=== PATIENT | male | born 1985 | race Two or more races ===

== ENCOUNTER 2017-05-14 23:00 | Emergency (ER) | payer MEDICAID, OTHER ==
[~2017-05-14] VITALS: Ht 172.7 cm; Wt 77.1 kg
[2017-05-15] MEDS ORDERED: DEXAMETHASONE SOD PHOS 10MG/1ML VIAL INJ IV ONE (02:30)
[2017-05-15] MEDS ORDERED: DEXAMETHASONE SOD PHOS 10MG/1ML VIAL INJ IM ONE (02:30)
[2017-05-15] MEDS ORDERED: KETOROLAC TROMETH 60MG/2ML VIAL IM ONE (02:30)
[2017-05-15] MEDS ORDERED: KETOROLAC TROMETH 30 MG/ML 1ML VIAL IV ONE ×2 (02:30→03:30)
[2017-05-15] MEDS ORDERED: SODIUM CHLORIDE 0.9% 1,000 ML IV ONE (02:30)
[2017-05-15 02:46] VITALS: BP 119/86
== END 2017-05-15 03:27 | disposition home or self-care (01) ==
LOC: ER 23:00
DX: K11.20 Sialoadenitis, unspecified (principal)
CPT/HCPCS: 96374; 96375; 96376; 99284; J1100; J1885; J7030

== ENCOUNTER 2022-08-08 00:30 | Emergency (ER) | payer MEDICAID ==
[~2022-08-08] VITALS: Ht 172.7 cm; Wt 76.8 kg
[2022-08-08 02:56] VITALS: BP 136/62
[2022-08-08] MEDS ORDERED: CIPR1SUS8 OT (03:21)
[2022-08-08] MEDS ORDERED: KETOROLAC TROMETH 30 MG/ML 1ML VIAL IM ONE (03:30)
[2022-08-09] MEDS ORDERED: AUG875T PO (07:04)
[2022-08-09] MEDS ORDERED: IBUP800T27 PO (07:04)
== END 2022-08-08 04:31 | disposition home or self-care (01) ==
LOC: ER 00:30
DX: H60.91 Unspecified otitis externa, right ear (principal); J45.909 Unspecified asthma, uncomplicated
CPT/HCPCS: 96372; 99283; J1885

== ENCOUNTER 2022-08-09 05:02 | Emergency (ER) | payer MEDICAID ==
[~2022-08-09] VITALS: Ht 172.7 cm; Wt 76.8 kg
[~2022-08-09 05:02] MED LIST: CIPR1SUS8 OT
[2022-08-09 05:18] VITALS: BP 123/69
[2022-08-09] MEDS ORDERED: AUG875T PO (07:04)
[2022-08-09] MEDS ORDERED: IBUP800T27 PO (07:04)
== END 2022-08-09 07:16 | disposition home or self-care (01) ==
LOC: ER 05:02
DX: H66.91 Otitis media, unspecified, right ear (principal); J45.909 Unspecified asthma, uncomplicated

== ENCOUNTER 2022-10-27 01:08 | Emergency (ER) | payer MEDICAID ==
[~2022-10-27] VITALS: Ht 172.7 cm; Wt 77.3 kg
[~2022-10-27 01:08] MED LIST changes: +AUG875T PO; +IBUP-1456 PO
[2022-10-27 03:54] VITALS: BP 121/89
[2022-10-27] MEDS ORDERED: AMOX500T86 PO (04:24)
[2022-10-27] MEDS ORDERED: IBUP-1456 PO (04:24)
== END 2022-10-27 05:10 | disposition home or self-care (01) ==
LOC: ER 01:08
DX: H66.93 Otitis media, unspecified, bilateral (principal); J45.909 Unspecified asthma, uncomplicated; Z79.1 Long term (current) use of non-steroidal anti-inflammatories (NSAID); Z79.899 Other long term (current) drug therapy